=== PATIENT | male | born 1990 | race Hispanic/Latino ===

== ENCOUNTER 2017-06-18 21:25 | Observation (INO) | payer BC ==
[2017-06-18 21:25] VITALS: BMI 25.8
[2017-06-18 23:02] LABS: BARBITURATES, UR NEGATIVE (NEGATIVE); BENZODIAZEPINES, UR NEGATIVE (NEGATIVE); OPIATES, UR NEGATIVE (NEGATIVE); PHENCYCLIDINE, UR POSITIVE (NEGATIVE)
[2017-06-19 01:57] VITALS: TEMP 98.9
--- NOTE | 2017-06-19 02:50 | ED PDOC ---
HPI: Psych/Substance Abuse Time Seen by Provider: 06/18/17 21:31 Chief Complaint (Nursing): Substance Abuse Chief Complaint (Provider): Denies complaint - Pt brought by EMS History Per: Patient, EMS History/Exam Limitations: no limitations Onset/Duration Of Symptoms: Unknown Current Symptoms Are (Timing): Still Present Modifying Factor(s): Alcohol Additional Complaint(s): Pt states he drank today. Pt states he does not do any drunks. Pt with unsteady gait on arrival and making treats to harm staff. Past Medical History Reviewed: Historical Data, Nursing Documentation, Vital Signs Vital Signs: Last Vital Signs Temp 98.9 F 06/19/17 01:56 Pulse 95 H 06/19/17 01:56 Resp 15 06/19/17 01:56 BP 128/83 06/19/17 01:56 Pulse Ox 95 06/19/17 01:56 - Medical History PMH: No Chronic Diseases - Surgical History Surgical History: No Surg Hx - Family History Family History: States: Unknown Family Hx - Living Arrangements Living Arrangements: Other - Social History Current smoker - smoking cessation education provided: No Alcohol: Occasional Drugs: Denies - Immunization History Hx Tetanus Toxoid Vaccination: No Hx Influenza Vaccination: Yes (2015) Hx Pneumococcal Vaccination: No - Home Medications Home Medications: Ambulatory Orders Medication Instructions Recorded No Known Home Med 05/24/17 - Allergies Allergies/Adverse Reactions: Allergies Allergy/AdvReac Type Severity Reaction Status Date / Time No Known Allergies Allergy Verified 05/24/17 17:03 Review of Systems ROS Statement: Except As Marked, All Systems Reviewed And Found Negative Psych: Positive for: Other Physical Exam - Reviewed Nursing Documentation Reviewed: Yes Vital Signs Reviewed: Yes - Physical Exam Appears: Positive for: Well, Non-toxic, No Acute Distress Head Exam: Positive for: ATRAUMATIC, NORMAL INSPECTION, NORMOCEPHALIC Skin: Positive for: Normal Color, Warm, DRY Eye Exam: Positive for: Normal appearance ENT: Positive for: Normal ENT Inspection Neck: Positive for: Normal, Painless ROM Cardiovascular/Chest: Positive for: Regular Rate, Rhythm Respiratory: Positive for: CNT, Normal Breath Sounds Gastrointestinal/Abdominal: Positive for: Normal Exam, Bowel Sounds, Soft. Negative for: Tenderness Back: Positive for: Normal Inspection Extremity: Positive for: Normal ROM Neurologic/Psych: Positive for: Alert, Oriented, Gait (Unsteady) - ECG O2 Sat by Pulse Oximetry: 95 Medical Decision Making Medical Decision Making: Pt initially took off shoes in room. Drug screen and alcohol pending. Pt than becomes aggitated and psychotic. PT given Ativan and Haldol. ED OBSERVATION Date of observation admission: 06/18/17 Time of observation admission: 23:50 - Observation admission statement Patient is being placed in observation because:: Alcohol and PCP intoxication. - Goals of Observation Goals of observation are:: Sobriety. - Progress Note Progress Note: 06/19/17 03:31 Pt sleeping in NAD. Vitals stable. Disposition - Clinical Impression Clinical Impression: PCP intoxication, Alcohol intoxication - Disposition Disposition: Routine/Home Disposition Time: 04:10 Condition: GOOD
[2017-06-19 06:49] VITALS: BP 130/78; PULSE 83; RESP 20; O2SAT 98
== END 2017-06-19 07:14 | disposition home or self-care (01) ==
LOC: H.ER 21:25 → H.EROBSV 23:52
PROVIDERS: ADMIT Emergency Medicine; ATTEND Emergency Medicine
DX: F10.129 Alcohol abuse with intoxication, unspecified (principal); F16.129 Hallucinogen abuse with intoxication, unspecified; Y90.7 Blood alcohol level of 200-239 mg/100 ml
CPT/HCPCS: 82948; 96372; 99284; G0378; G0480; J1630; J2060

== ENCOUNTER 2017-07-18 17:03 | Observation (INO) | payer BC ==
[2017-07-18 17:10] VITALS: BP 130/76; PULSE 124; RESP 14; TEMP 100.1; O2SAT 99
[2017-07-18] MEDS ORDERED: Sodium Chloride 0.9% 1,000 ML IV STA (17:27)
--- NOTE | 2017-07-18 18:07 | ED PDOC ---
HPI: Psych/Substance Abuse Time Seen by Provider: 07/18/17 17:11 Chief Complaint (Nursing): Substance Abuse Chief Complaint (Provider): Altered Mental Status ED Caveat: Altered Mental Status History Per: Patient History/Exam Limitations: clinical condition Onset/Duration Of Symptoms: Days (x 1) Current Symptoms Are (Timing): Still Present Additional Complaint(s): Patient is a 24 y/o male who was brought to the ED by EMS for evaluation of altered mental status. Unable to give any history. Found on the ground outside, across the street from [facility]. Awake but not responding to any questions, appeared confused. Possible intoxication. PMD: Unknown Past Medical History Reviewed: Historical Data, Nursing Documentation, Vital Signs, Unable To Obtain Vital Signs: Last Vital Signs Temp 100.1 F H 07/18/17 17:05 Pulse 124 H 07/18/17 17:05 Resp 14 07/18/17 17:05 BP 130/76 07/18/17 17:05 Pulse Ox 99 07/18/17 17:05 - Medical History Other PMH: unknown - Surgical History Other surgeries: unknown - Family History Family History: States: Unknown Family Hx - Allergies Allergies/Adverse Reactions: Allergies Allergy/AdvReac Type Severity Reaction Status Date / Time Unobtainable Allergy Verified 07/18/17 17:05 Review of Systems Review Of Systems: ROS cannot be obtained secondary to pt's inabilty to answer questions. Physical Exam - Reviewed Nursing Documentation Reviewed: Yes Vital Signs Reviewed: Yes - Physical Exam Appears: Positive for: No Acute Distress (obtunded, WDWN) Head Exam: Positive for: ATRAUMATIC, NORMOCEPHALIC Skin: Positive for: Warm, Dry Eye Exam: Positive for: EOMI, PERRL, Nystagmus (rotatory), Conjunctival injection ENT: Negative for: Pharyngeal Erythema, Tonsillar Exudate Neck: Positive for: Painless ROM, Supple. Negative for: Pain On Movement Of Neck Cardiovascular/Chest: Positive for: Regular Rate, Rhythm, Chest Non Tender. Negative for: Murmur Respiratory: Positive for: Normal Breath Sounds. Negative for: Wheezing Gastrointestinal/Abdominal: Positive for: Soft. Negative for: Tenderness Back: Positive for: Normal Inspection. Negative for: Vertebral Tenderness Extremity: Positive for: Normal ROM. Negative for: Deformity Lymphatic: Negative for: Adenopathy Neurologic/Psych: Positive for: Alert, Mood/Affect (flat), Other (murmurs unintelligibly to questions occasionally but otherwise mute). Negative for: Oriented, Motor/Sensory Deficits - Laboratory Results Result Diagrams: 07/18/17 17:52 07/18/17 17:52 - ECG O2 Sat by Pulse Oximetry: 99 (RA) Pulse Ox Interpretation: Normal Medical Decision Making Medical Decision Making: Initial Impression: Drug intoxication, Altered mental status Differentials include but are not limited to dehydration and alcohol intoxication Time: : Initial Plan: --Labs and EKG ordered --Started on IV fluids, Dextrose 5% --Patient admitted to ED-OBS for altered mental status See ED-OBS tab for further documentation Scribe Attestation: Documented by Kera Ferrell, acting as a scribe for Lima Edmond MD Provider Scribe Attestation: All medical record entries made by the Scribe were at my direction and personally dictated by me. I have reviewed the chart and agree that the record accurately reflects my personal performance of the history, physical exam, medical decision making, and the department course for this patient. I have also personally directed, reviewed, and agree with the discharge instructions and disposition. ED OBSERVATION Date of observation admission: 07/18/17 Time of observation admission: 17:27 - Observation admission statement Patient is being placed in observation because:: Altered mental status - Goals of Observation Goals of observation are:: Clinical sobriety/resolution of symptoms - Progress Note Progress Note: 07/18/17 Time: :27 --Patient resting. Vital signs stable. 07/18/17 18:25 Suddenly more alert, able to give name, walking (and dancing) without difficulty. No signs of withdrawal. Stable for dc. Substance abuse resources given. Disposition - Clinical Impression Clinical Impression: Substance abuse - Disposition Disposition: Routine/Home Disposition Time: 17:30 Condition: IMPROVED
[2017-07-18 18:09] LABS: BASO # 0.1 K/uL (0.0-0.2); BASO % 0.7 % (0.0-2.0); EOS # 0.4 K/uL (0.0-0.7); EOS % 3.3 % (0.0-4.0); HEMATOCRIT 42.9 % (35.0-51.0); LYMPH # 2.8 K/uL (1.0-4.3); LYMPH % 24.8 % (20.0-40.0); MEAN CELL VOLUME 97.8 fl (80.0-94.0); MEAN CORPUSCULAR HEMOGLOBIN 32.3 pg (27.0-31.0); MONO # 0.9 K/uL (0.0-0.8); MONO % 8.2 % (0.0-10.0); RED CELL DISTRIBUTION WIDTH 13.8 % (11.5-14.5); WHITE BLOOD COUNT 11.2 K/uL (4.8-10.8)
[2017-07-18 18:20] LABS: ALB/GLOB RATIO 1.6 (1.0-2.1); ALCOHOL SERUM 170 mg/dl (0-10); ALKALINE PHOSPHATASE 44 U/L (38-126); ALT/SGPT 40 U/L (21-72); AST/SGOT 35 U/L (17-59); BILIRUBIN,TOTAL 0.4 mg/dl (0.2-1.3); BLOOD UREA NITROGEN 13 mg/dl (9-20); CALCIUM 9.6 mg/dL (8.4-10.2); CARBON DIOXIDE 24 mmol/L (22-30); CHLORIDE 108 mmol/L (98-107); GFR AFRICAN-AMERICAN > 60; GLUCOSE,RANDOM 88 mg/dL (75-110); MAGNESIUM 1.9 MG/DL (1.6-2.3); PHOSPHOROUS 3.3 mg/dl (2.5-4.5); SODIUM 145 mmol/l (132-148); TOTAL PROTEIN 7.4 G/DL (6.3-8.2)
== END 2017-07-18 18:43 | disposition home or self-care (01) ==
LOC: H.ER 17:03 → H.EROBSV 17:30 → MERGE 17:30 → EDBD 17:30
PROVIDERS: ADMIT Emergency Medicine; ATTEND Emergency Medicine
DX: F55.8 Abuse of other non-psychoactive substances (principal); F19.10 Other psychoactive substance abuse, uncomplicated
CPT/HCPCS: 36415; 80053; 82948; 83735; 84100; 85025; 96360; 99284; G0378; G0480; J7040

== ENCOUNTER 2017-07-24 15:18 | Observation (INO) | payer BC ==
[2017-07-24 15:19] VITALS: BMI 25.8
[2017-07-24 15:23] VITALS: BP 155/76; PULSE 100; RESP 18; TEMP 97.7; O2SAT 98
--- NOTE | 2017-07-24 16:01 | ED PDOC ---
HPI: Psych/Substance Abuse Time Seen by Provider: 07/24/17 15:46 Chief Complaint (Nursing): Substance Abuse Chief Complaint (Provider): Substance Abuse History Per: EMS History/Exam Limitations: other (Patient has taken unknown drugs) Current Symptoms Are (Timing): Still Present Additional Complaint(s): Rustam Ponce Jr is a 27 year old male that is known to the ED that was brought by EMS for bizarre behavior. Patient is very unstable on his feet, has slurred speech, significant nystagmus, and is mildly aggressive. Past Medical History Reviewed: Historical Data, Nursing Documentation, Vital Signs Vital Signs: Last Vital Signs Temp 97.7 F 07/24/17 15:21 Pulse 100 H 07/24/17 15:21 Resp 18 07/24/17 15:21 BP 155/76 H 07/24/17 15:21 Pulse Ox 98 07/24/17 15:21 - Family History Family History: States: Unknown Family Hx - Immunization History Hx Tetanus Toxoid Vaccination: No Hx Influenza Vaccination: Yes (2015) Hx Pneumococcal Vaccination: No - Home Medications Home Medications: Ambulatory Orders Medication Instructions Recorded No Known Home Med 05/24/17 Unobtainable 05/31/17 - Allergies Allergies/Adverse Reactions: Allergies Allergy/AdvReac Type Severity Reaction Status Date / Time No Known Allergies Allergy Verified 05/24/17 17:03 Review of Systems Review Of Systems: ROS cannot be obtained secondary to pt's inabilty to answer questions. Physical Exam - Reviewed Nursing Documentation Reviewed: Yes Vital Signs Reviewed: Yes - Physical Exam Appears: Positive for: Non-toxic. Negative for: No Acute Distress (Patient is in mild anxious distress.) Head Exam: Positive for: ATRAUMATIC, NORMOCEPHALIC Skin: Positive for: Normal Color, Warm Eye Exam: Positive for: Nystagmus Neurologic/Psych: Positive for: Alert, Oriented, Gait (unsteady), Other ( Patient is acting agressively in ED. Speech is slurred. ). Negative for: Motor/ Sensory Deficits - ECG O2 Sat by Pulse Oximetry: 98 (RA) Pulse Ox Interpretation: Normal Medical Decision Making Medical Decision Making: Impression: Substance Abuse Plan: * For patient's safety and to help with drug-induced psychosis, patient will be placed on four-point restraints and given Ativan. Restraints will be removed when patient is calm. 16:01 Patient will be placed in ED Obs until reaching clinical sobriety. Scribe Attestation: Documented by Parul Fine, acting as a scribe for Bekah Lopez PA-C. Provider Scribe Attestation: All medical record entries made by the Scribe were at my direction and personally dictated by me. I have reviewed the chart and agree that the record accurately reflects my personal performance of the history, physical exam, medical decision making, and the department course for this patient. I have also personally directed, reviewed, and agree with the discharge instructions and disposition. ED OBSERVATION Date of observation admission: 07/24/17 Time of observation admission: 16:01 - Observation admission statement Patient is being placed in observation because:: drug-induced psychosis. - Goals of Observation Goals of observation are:: clinical sobriety. - Progress Note Progress Note: 07/24/17 16:01 Patient is continuously yelling in ED. 07/24/17 16:48 stable no longer with nystagmus, stable gait normal speech. calm and cooperative. Pt is stable and well appearing clincally sober to be d/c home. 4- point restraints removed. Disposition - Clinical Impression Clinical Impression: Drug abuse - Patient ED Disposition Is Patient to be Admitted: No Counseled Patient/Family Regarding: Need For Followup - Disposition Disposition: Routine/Home Disposition Time: 16:50 Condition: STABLE
== END 2017-07-24 17:07 | disposition home or self-care (01) ==
LOC: H.ER 15:18 → H.EROBSV 16:01
PROVIDERS: ADMIT Emergency Medicine; ATTEND Emergency Medicine
DX: F16.10 Hallucinogen abuse, uncomplicated (principal); F10.129 Alcohol abuse with intoxication, unspecified; Y90.6 Blood alcohol level of 120-199 mg/100 ml; H55.00 Unspecified nystagmus; Z78.1 Physical restraint status
CPT/HCPCS: 82948; 96372; 99283; G0378; J2060

== ENCOUNTER 2017-07-25 12:33 | Observation (INO) | payer BC ==
[2017-07-25 12:34] VITALS: BMI 25.8
[2017-07-25 12:40] VITALS: TEMP 97; O2SAT 100
--- NOTE | 2017-07-25 13:06 | ED PDOC ---
HPI: Psych/Substance Abuse Time Seen by Provider: 07/25/17 12:42 Chief Complaint (Nursing): Substance Abuse Chief Complaint (Provider): Substance Abuse History Per: Patient Additional Complaint(s): 27 y/o male presents to the emergency department via ambulance for substance abuse after mother called police for possible phencyclidine (PCP) use. Patient has a history of known substance abuse and was seen in this facility multiple times for similar problems. Patient is a poor historian due to intoxication. As per history from EMS, patient is not experiencing homicidal or suicidal ideation. Past Medical History Reviewed: Historical Data, Nursing Documentation, Vital Signs Vital Signs: Last Vital Signs Temp 97 F L 07/25/17 12:36 Pulse 100 H 07/25/17 12:36 Resp 20 07/25/17 12:36 BP 143/91 H 07/25/17 12:36 Pulse Ox 100 07/25/17 12:36 - Medical History PMH: No Chronic Diseases - Surgical History Surgical History: No Surg Hx - Family History Family History: States: Unknown Family Hx - Immunization History Hx Tetanus Toxoid Vaccination: No Hx Influenza Vaccination: Yes (2015) Hx Pneumococcal Vaccination: No - Home Medications Home Medications: Ambulatory Orders Medication Instructions Recorded No Known Home Med 05/24/17 Unobtainable 05/31/17 - Allergies Allergies/Adverse Reactions: Allergies Allergy/AdvReac Type Severity Reaction Status Date / Time No Known Allergies Allergy Verified 05/24/17 17:03 Review of Systems ROS Statement: Except As Marked, All Systems Reviewed And Found Negative (Poor historian due to substance abuse) Psych: Negative for: Suicidal ideation (Homicidal ideation as per EMS) Physical Exam - Reviewed Nursing Documentation Reviewed: Yes Vital Signs Reviewed: Yes - Physical Exam Appears: Positive for: Non-toxic, No Acute Distress Head Exam: Positive for: ATRAUMATIC, NORMAL INSPECTION, NORMOCEPHALIC Skin: Positive for: Normal Color, Warm, Dry Eye Exam: Positive for: Normal appearance, EOMI Cardiovascular/Chest: Positive for: Regular Rate, Rhythm. Negative for: Murmur Respiratory: Positive for: Normal Breath Sounds. Negative for: Accessory Muscle Use, Respiratory Distress Gastrointestinal/Abdominal: Positive for: Normal Exam, Soft. Negative for: Tenderness Extremity: Positive for: Normal ROM. Negative for: Pedal Edema Neurologic/Psych: Positive for: Alert, Oriented, Mood/Affect (Agitated and intoxicated) - ECG O2 Sat by Pulse Oximetry: 100 (RA) Pulse Ox Interpretation: Normal Medical Decision Making Medical Decision Making: Time: 12:43 Initial impression: Substance abuse most likely PCP Initial plan: --Ativan 2 mg IM --Restraint: Violent or harm to self/other --Reevaluation Time: 13:43 --Admit to hospital routine: Placed on ED Obs for substance abuse Any further documentation will be included within ED Obs section of chart. Pt is alert and awake. Ambulating with steady gait Scribe Attestation: Documented by Kya Singh, acting as a scribe for Edgar Muller MD. Provider Scribe Attestation: All medical record entries made by the Scribe were at my direction and personally dictated by me. I have reviewed the chart and agree that the record accurately reflects my personal performance of the history, physical exam, medical decision making, and the department course for this patient. I have also personally directed, reviewed, and agree with the discharge instructions and disposition. ED OBSERVATION Discharge: Yes Date of observation admission: 07/25/17 Time of observation admission: 12:43 - Observation admission statement Patient is being placed in observation because:: Substance abuse - Goals of Observation Goals of observation are:: Clinical sobriety Disposition - Clinical Impression Clinical Impression: PCP intoxication - Patient ED Disposition Is Patient to be Admitted: Transfer of Care Counseled Patient/Family Regarding: Studies Performed, Diagnosis - Disposition Disposition: Transfer of Care Disposition Time: 15:00 Condition: GOOD
[2017-07-25 15:03] VITALS: BP 136/88; PULSE 90; RESP 18
== END 2017-07-25 15:07 | disposition home or self-care (01) ==
LOC: H.ER 12:33 → H.EROBSV 13:43
PROVIDERS: ADMIT Emergency Medicine; ATTEND Emergency Medicine
DX: F16.129 Hallucinogen abuse with intoxication, unspecified (principal)
CPT/HCPCS: 96372; 99284; G0378; J2060

== ENCOUNTER 2017-07-26 16:31 | Emergency (ER) | payer BC ==
[2017-07-26 16:31] VITALS: BMI 25.8
[2017-07-26 16:36] VITALS: BP 143/91; PULSE 128; RESP 16; TEMP 99; O2SAT 98
--- NOTE | 2017-07-26 16:52 | ED PDOC ---
HPI: Psych/Substance Abuse Time Seen by Provider: 07/26/17 16:34 Chief Complaint (Nursing): Substance Abuse Chief Complaint (Provider): Substance abuse History Per: Patient Additional Complaint(s): Pt is a 27 yo male, Hx of PCP and Alcohol Abuse, BIB EMS for evaluation of possible substance abuse. Pt found sitting on bench near lightrail, pt drowsy, easily arousable, alert and oriented x 3. Admits to "drinking a lot of beer." Calm and cooperative at present time. Pt oriented to Person, place and time, offers no physical complaints. Past Medical History Reviewed: Nursing Documentation, Vital Signs Vital Signs: Last Vital Signs Temp 99.0 F 07/26/17 16:32 Pulse 128 H 07/26/17 16:32 Resp 16 07/26/17 16:32 BP 143/91 H 07/26/17 16:32 Pulse Ox 98 07/26/17 16:32 - Medical History PMH: No Chronic Diseases - Family History Family History: States: Unknown Family Hx - Social History Alcohol: > 2 Drinks/Day Drugs: Other - Immunization History Hx Tetanus Toxoid Vaccination: No Hx Influenza Vaccination: Yes (2015) Hx Pneumococcal Vaccination: No - Home Medications Home Medications: Ambulatory Orders Medication Instructions Recorded No Known Home Med 05/24/17 Unobtainable 05/31/17 - Allergies Allergies/Adverse Reactions: Allergies Allergy/AdvReac Type Severity Reaction Status Date / Time No Known Allergies Allergy Verified 05/24/17 17:03 Review of Systems ROS Statement: Except As Marked, All Systems Reviewed And Found Negative Physical Exam - Reviewed Nursing Documentation Reviewed: Yes Vital Signs Reviewed: Yes - Physical Exam Appears: Positive for: Well, Non-toxic, No Acute Distress Head Exam: Positive for: ATRAUMATIC, NORMAL INSPECTION, NORMOCEPHALIC Skin: Positive for: Normal Color, Warm, DRY Eye Exam: Positive for: EOMI, Normal appearance, PERRL ENT: Positive for: Normal ENT Inspection Neck: Positive for: Normal, Painless ROM Cardiovascular/Chest: Positive for: Regular Rate, Rhythm Respiratory: Positive for: CNT, Normal Breath Sounds Gastrointestinal/Abdominal: Positive for: Normal Exam, Bowel Sounds, Soft Back: Positive for: Normal Inspection Extremity: Positive for: Normal ROM Neurologic/Psych: Positive for: Alert, Oriented - ECG O2 Sat by Pulse Oximetry: 98 Medical Decision Making Medical Decision Making: Pt able to ambulate with steady gait. Admits to drinking today. Answers questions appropriately. Notes last using PCP yesterday. Disposition - Clinical Impression Clinical Impression: Alcohol intoxication, Substance abuse - Patient ED Disposition Is Patient to be Admitted: No - Disposition Disposition: Routine/Home Disposition Time: 16:54 Condition: STABLE Instructions: Alcohol Intoxication (ED), Polysubstance Abuse (ED) Forms: [facility] (Eth[place]ian) - POA Present On Arrival: None
== END 2017-07-26 17:05 | disposition home or self-care (01) ==
LOC: H.ER 16:31
DX: F10.10 Alcohol abuse, uncomplicated (principal); F19.10 Other psychoactive substance abuse, uncomplicated

== ENCOUNTER 2017-07-30 22:29 | Observation (INO) | payer BC ==
[2017-07-30 22:29] VITALS: BMI 25.8
[2017-07-30 22:33] VITALS: TEMP 99.2
--- NOTE | 2017-07-30 23:38 | ED PDOC ---
HPI: Psych/Substance Abuse Time Seen by Provider: 07/30/17 22:36 Chief Complaint (Nursing): Altered Mental Status Chief Complaint (Provider): ETOH intoxication ED Caveat: Intoxicated History Per: EMS History/Exam Limitations: intoxication Onset/Duration Of Symptoms: Mins (prior to arrival) Current Symptoms Are (Timing): Still Present Additional Complaint(s): Rustam Ponce Jr. is a 27 year old male, known to ED for substance abuse, who presents to the emergency department via EMS, for an evaluation of alcohol intoxication prior to arrival. Unable to provide further medical history due to current state of intoxication. PMD: none provided Past Medical History Reviewed: Historical Data, Nursing Documentation, Vital Signs Vital Signs: Last Vital Signs Temp 99.2 F 07/30/17 22:30 Pulse 115 H 07/30/17 22:30 Resp 20 07/30/17 22:30 BP 136/76 07/30/17 22:30 Pulse Ox 99 07/30/17 22:30 - Family History Family History: States: Unknown Family Hx - Social History Alcohol: > 2 Drinks/Day - Immunization History Hx Tetanus Toxoid Vaccination: No Hx Influenza Vaccination: Yes (2015) Hx Pneumococcal Vaccination: No - Home Medications Home Medications: Ambulatory Orders Medication Instructions Recorded No Known Home Med 05/24/17 Unobtainable 05/31/17 - Allergies Allergies/Adverse Reactions: Allergies Allergy/AdvReac Type Severity Reaction Status Date / Time No Known Allergies Allergy Verified 05/24/17 17:03 Review of Systems Review Of Systems: ROS cannot be obtained secondary to pt's inabilty to answer questions. (intoxication) Physical Exam - Reviewed Nursing Documentation Reviewed: Yes Vital Signs Reviewed: Yes - Physical Exam Appears: Positive for: Well, Non-toxic, No Acute Distress (but agitated) Head Exam: Positive for: ATRAUMATIC, NORMAL INSPECTION, NORMOCEPHALIC Skin: Positive for: Normal Color Cardiovascular/Chest: Positive for: Regular Rate, Rhythm. Negative for: Chest Non Tender Respiratory: Positive for: Normal Breath Sounds. Negative for: Crackles, Rales , Rhonchi, Wheezing, Respiratory Distress Gastrointestinal/Abdominal: Positive for: Normal Exam, Bowel Sounds, Soft. Negative for: Tenderness Neurologic/Psych: Positive for: Alert, Mood/Affect (agitated), Other - ECG O2 Sat by Pulse Oximetry: 99 (RA) Pulse Ox Interpretation: Normal Medical Decision Making Medical Decision Making: Initial Impression: ETOH intoxication Initial Plan: * Alcohol serum * Drug screen, urine * Haldol 5mg IM * Ativan 2mg IM * Accucheck * Restraint * Admit to hospital Scribe Attestation: Documented by Fartun Yang, acting as a scribe for Martine Toledo MD. Provider Scribe Attestation: All medical record entries made by theArturowere at my direction and personally dictated by me. I have reviewed the chart and agree that the record accurately reflects my personal performance of the history, physical exam, medical decision making, and the department course for this patient. I have also personally directed, reviewed, and agree with the discharge instructions and disposition. ED OBSERVATION Date of observation admission: 07/30/17 Time of observation admission: 22:43 - Observation admission statement Patient is being placed in observation because:: ETOH intoxication - Goals of Observation Goals of observation are:: clinical sobriety Disposition - Clinical Impression Clinical Impression: PCP intoxication, Drug abuse - Disposition Disposition: Transfer of Care Disposition Time: 00:00 Condition: STABLE Patient Signed Over To: Glenroy Richards Handoff Comments: Pending sobriety.
--- NOTE | 2017-07-31 00:20 | ED PDOC ---
- ECG O2 Sat by Pulse Oximetry: 99 (RA) Pulse Ox Interpretation: Normal Medical Decision Making Medical Decision Making: Time: 00:00 --Patient was endorsed to provider by Dr. Martine Toledo. Pending clinical sobriety. --Patient is resting comfortably with stable vital signs. Time: 0130 --Patient continues to rest comfortably. Time: 0300 --Patient continues to rest comfortably. Time: 0430 --Patient continues to rest comfortably. Time: 0500 --Upon provider reevaluation, patient is awake, alert, medically stable and requires no further treatment in the ED at this time. Patient will be discharged home. Counseling was provided and all questions were answered regarding diagnosis and need for follow up with PCP. There is agreement to discharge plan. Return if symptoms persist or worsen. Clinical Impression: PCP intoxication; Drug abuse Scribe Attestation: Documented by Fartun Yang, acting as a scribe for Glenroy Richards MD. Provider Scribe Attestation: All medical record entries made by the Scribe were at my direction and personally dictated by me. I have reviewed the chart and agree that the record accurately reflects my personal performance of the history, physical exam, medical decision making, and the department course for this patient. I have also personally directed, reviewed, and agree with the discharge instructions and disposition. Disposition Counseled Patient/Family Regarding: Diagnosis - Clinical Impression Clinical Impression: PCP intoxication, Drug abuse - POA Present On Arrival: None - Disposition Disposition: Routine/Home Disposition Time: 05:00 Condition: STABLE
[2017-07-31 03:21] VITALS: RESP 18
[2017-07-31 05:04] VITALS: BP 102/72; PULSE 93
[2017-07-31 05:05] VITALS: O2SAT 99
== END 2017-07-31 05:18 | disposition home or self-care (01) ==
LOC: H.ER 22:29 → H.EROBSV 22:43
PROVIDERS: ADMIT Emergency Medicine; ATTEND Emergency Medicine
DX: F10.129 Alcohol abuse with intoxication, unspecified (principal); F16.129 Hallucinogen abuse with intoxication, unspecified; Y90.6 Blood alcohol level of 120-199 mg/100 ml
CPT/HCPCS: 82948; 96372; 99285; G0378; G0480; J1630; J2060

== ENCOUNTER 2017-08-06 22:29 | Observation (INO) | payer BC ==
[2017-08-06 22:29] VITALS: BMI 25.8
[2017-08-06 22:32] VITALS: BP 141/82; PULSE 125; RESP 16; TEMP 97.9; O2SAT 97
--- NOTE | 2017-08-06 23:25 | ED PDOC ---
HPI: Psych/Substance Abuse Time Seen by Provider: 08/06/17 22:33 Chief Complaint (Nursing): Substance Abuse Chief Complaint (Provider): intoxication ED Caveat: Intoxicated Additional Complaint(s): BIBEMS for intoxication Known to ER for multiple visits for PCP and alcohol intoxication Pt aggressive and not communicating any history Past Medical History Reviewed: Historical Data, Nursing Documentation, Vital Signs, Unable To Obtain Vital Signs: Last Vital Signs Temp 97.9 F 08/06/17 22:30 Pulse 125 H 08/06/17 22:30 Resp 16 08/06/17 22:30 BP 141/82 08/06/17 22:30 Pulse Ox 97 08/06/17 22:30 - Family History Family History: States: Unknown Family Hx - Immunization History Hx Tetanus Toxoid Vaccination: No Hx Influenza Vaccination: Yes (2015) Hx Pneumococcal Vaccination: No - Home Medications Home Medications: Ambulatory Orders Medication Instructions Recorded No Known Home Med 05/24/17 Unobtainable 05/31/17 - Allergies Allergies/Adverse Reactions: Allergies Allergy/AdvReac Type Severity Reaction Status Date / Time No Known Allergies Allergy Verified 05/24/17 17:03 Review of Systems Review Of Systems: ROS cannot be obtained secondary to pt's inabilty to answer questions. Physical Exam - Reviewed Nursing Documentation Reviewed: Yes Vital Signs Reviewed: Yes - Physical Exam Appears: Positive for: In Acute Distress (aggressive and shouting, appears intoxicated) Head Exam: Positive for: ATRAUMATIC, NORMOCEPHALIC Skin: Positive for: Warm, Dry Eye Exam: Positive for: EOMI, PERRL, Nystagmus (rotatory) ENT: Negative for: Pharyngeal Erythema, Tonsillar Exudate Neck: Positive for: Painless ROM, Supple Cardiovascular/Chest: Positive for: Chest Non Tender, Tachycardia Respiratory: Positive for: Normal Breath Sounds. Negative for: Accessory Muscle Use, Respiratory Distress Gastrointestinal/Abdominal: Positive for: Soft. Negative for: Tenderness Back: Positive for: Normal Inspection. Negative for: Muscle Spasm Extremity: Positive for: Normal ROM. Negative for: Deformity Lymphatic: Negative for: Adenopathy Neurologic/Psych: Positive for: Alert, Gait (unsteady). Negative for: Oriented , Motor/Sensory Deficits - Laboratory Results Result Diagrams: 08/06/17 23:02 08/06/17 23:10 - ECG O2 Sat by Pulse Oximetry: 97 - Progress ED Course And Treament: Required medication for psychosis and restraints for safety. Disposition - Clinical Impression Clinical Impression: PCP intoxication - Disposition Disposition: Transfer of Care Disposition Time: 23:00 Condition: STABLE Patient Signed Over To: Flynn Baltazar Handoff Comments: Pending sobriety.
[2017-08-06 23:30] LABS: ALB/GLOB RATIO 1.6 (1.0-2.1); ALCOHOL SERUM < 10 mg/dl (0-10); ALKALINE PHOSPHATASE 44 U/L (38-126); ALT/SGPT 53 U/L (21-72); AST/SGOT 62 U/L (17-59); BILIRUBIN,TOTAL 0.3 mg/dl (0.2-1.3); BLOOD UREA NITROGEN 20 mg/dl (9-20); CALCIUM 10.1 mg/dL (8.4-10.2); CARBON DIOXIDE 21 mmol/L (22-30); CHLORIDE 109 mmol/L (98-107); GFR AFRICAN-AMERICAN > 60; GLUCOSE,RANDOM 110 mg/dL (75-110); POTASSIUM 4.2 MMOL/L (3.6-5.0); SODIUM 144 mmol/l (132-148); TOTAL PROTEIN 7.5 G/DL (6.3-8.2)
[2017-08-06 23:32] LABS: BASO # 0.1 K/uL (0.0-0.2); BASO % 0.7 % (0.0-2.0); EOS # 0.2 K/uL (0.0-0.7); EOS % 1.7 % (0.0-4.0); HEMATOCRIT 42.2 % (35.0-51.0); LYMPH # 2.2 K/uL (1.0-4.3); LYMPH % 20.8 % (20.0-40.0); MEAN CELL VOLUME 97.7 fl (80.0-94.0); MEAN CORPUSCULAR HEMOGLOBIN 32.5 pg (27.0-31.0); MEAN CORPUSCULAR HGB CONC 33.3 g/dL (33.0-37.0); MEAN PLATELET VOLUME 7.9 fl (7.2-11.7); MONO # 0.9 K/uL (0.0-0.8); MONO % 8.9 % (0.0-10.0); NEUT # 7.2 K/uL (1.8-7.0); NEUT % 67.9 % (50.0-75.0); NRBC % 0.1 % (0.0-0.0); RED CELL DISTRIBUTION WIDTH 13.9 % (11.5-14.5); WHITE BLOOD COUNT 10.7 K/uL (4.8-10.8)
--- NOTE | 2017-08-07 00:45 | ED PDOC ---
- Laboratory Results Result Diagrams: 08/06/17 23:02 08/06/17 23:10 - ECG O2 Sat by Pulse Oximetry: 97 (RA) Pulse Ox Interpretation: Normal Medical Decision Making Medical Decision Making: Time: 0:00 --Patient is transferred to hi by Dr. Lima Edmond. --Patient is awaiting clinical sobriety. *See ED-OBS tab for further documentation Scribe Attestation: Documented by Syed Jc, acting as a scribe for Flynn Baltazar MD Provider Scribe Attestation: All medical record entries made by the Scribe were at my direction and personally dictated by me. I have reviewed the chart and agree that the record accurately reflects my personal performance of the history, physical exam, medical decision making, and the department course for this patient. I have also personally directed, reviewed, and agree with the discharge instructions and disposition. Disposition Counseled Patient/Family Regarding: Studies Performed, Diagnosis, Need For Followup - Clinical Impression Clinical Impression: PCP intoxication - POA Present On Arrival: None - Disposition Disposition: Routine/Home Disposition Time: 23:00 Condition: STABLE ED OBSERVATION Date of observation admission: 08/06/17 Time of observation admission: 23:00 - Observation admission statement Patient is being placed in observation because:: drug-induced psychosis - Goals of Observation Goals of observation are:: Clinical sobriety - Progress Note Progress Note: 08/07/17 00:00 --Patient is resting. Vital signs stable. Time: 1:30 --Patient is currently resting with stable vitals. Time: 1:45 --Restraints removed. Time: 03:00 --Patient is resting comfortably with stable vitals. Time: 4:30 Clinical Impression: PCP Intoxication --Patient is awake, alert, and oriented x3 --He has a steady gate, clear speech, and is stable for discharge
== END 2017-08-07 04:23 | disposition home or self-care (01) ==
LOC: H.ER 22:29 → H.EROBSV 23:00
PROVIDERS: ADMIT Emergency Medicine; ATTEND Emergency Medicine
DX: F16.129 Hallucinogen abuse with intoxication, unspecified (principal); F10.129 Alcohol abuse with intoxication, unspecified
CPT/HCPCS: 36415; 80053; 82948; 85025; 96372; 99283; G0378; G0480; J1630; J2060

== ENCOUNTER 2017-10-22 17:58 | Emergency (ER) | payer BC ==
[2017-10-22 17:58] VITALS: BMI 56.9
[2017-10-22 18:02] VITALS: BP 166/86; PULSE 129; RESP 20; TEMP 100.6; O2SAT 100
--- NOTE | 2017-10-22 18:14 | ED PDOC ---
HPI: Psych/Substance Abuse Time Seen by Provider: 10/22/17 18:10 Chief Complaint (Nursing): Substance Abuse Chief Complaint (Provider): susbtance abuse History Per: Patient, EMS Additional Complaint(s): Patient was brought in by police and EMS for evaluation of alcohol and PCP use. Patient admits to drinking but he denies drug use. He offers no acute complaints and he is not currently under arrest. Patient denies suicidal or homicidal ideation. Past Medical History Reviewed: Historical Data, Nursing Documentation, Vital Signs Vital Signs: Last Vital Signs Temp 100.6 F H 10/22/17 18:00 Pulse 129 H 10/22/17 18:00 Resp 20 10/22/17 18:00 BP 166/86 H 10/22/17 18:00 Pulse Ox 100 10/22/17 18:00 - Medical History PMH: No Chronic Diseases - Family History Family History: States: No Known Family Hx - Living Arrangements Living Arrangements: With Family - Social History Current smoker - smoking cessation education provided: Yes Alcohol: Social Drugs: Other (PCP) - Home Medications Home Medications: Ambulatory Orders Medication Instructions Recorded No Known Home Med 10/07/17 Unobtainable 10/07/17 - Allergies Allergies/Adverse Reactions: Allergies Allergy/AdvReac Type Severity Reaction Status Date / Time No Known Allergies Allergy Verified 10/22/17 17:59 Review of Systems ROS Statement: Except As Marked, All Systems Reviewed And Found Negative Cardiovascular: Negative for: Chest Pain Gastrointestinal: Negative for: Nausea, Vomiting Psych: Positive for: Other (etoh, substance abuse) Physical Exam - Reviewed Nursing Documentation Reviewed: Yes Vital Signs Reviewed: Yes - Physical Exam Appears: Positive for: Well, Non-toxic, No Acute Distress Skin: Negative for: Rash Eye Exam: Positive for: Normal appearance Cardiovascular/Chest: Positive for: Regular Rate, Rhythm Respiratory: Positive for: Normal Breath Sounds. Negative for: Wheezing, Respiratory Distress Neurologic/Psych: Positive for: Alert, Other (intoxicated, answers some questions appropriately) - Laboratory Results Result Diagrams: 10/22/17 18:42 10/22/17 18:42 - ECG O2 Sat by Pulse Oximetry: 100 Pulse Ox Interpretation: Normal Medical Decision Making Medical Decision Makin:15: 27 year old here for alcohol and PCP abuse Plan: 1:1 bedside observation CBC CMP UDS BAL BAL: 129 UDS: positive for PCP 19:51: patient is awake, alert, has steady gait, he is stable for discharge. Disposition - Clinical Impression Clinical Impression: PCP (phencyclidine) abuse, Alcohol intoxication - Patient ED Disposition Is Patient to be Admitted: No Counseled Patient/Family Regarding: Studies Performed, Diagnosis, Need For Followup - Disposition Referrals: [facility] [Outside] Disposition: Routine/Home Disposition Time: 19:44 Condition: STABLE Additional Instructions: Follow up with primary care doctor. Instructions: Alcohol Intoxication (ED), Polysubstance Abuse (ED) Forms: [employer] (Belarusian)
[2017-10-22 18:59] LABS: ALB/GLOB RATIO 1.5 (1.0-2.1); ALCOHOL SERUM 129 mg/dl (0-10); ALKALINE PHOSPHATASE 42 U/L (38-126); ALT/SGPT 67 U/L (21-72); AST/SGOT 58 U/L (17-59); BILIRUBIN,TOTAL 0.3 mg/dl (0.2-1.3); BLOOD UREA NITROGEN 24 mg/dl (9-20); CALCIUM 9.6 mg/dL (8.4-10.2); CARBON DIOXIDE 21 mmol/L (22-30); CHLORIDE 110 mmol/L (98-107); GFR AFRICAN-AMERICAN > 60; GLUCOSE,RANDOM 95 mg/dL (75-110); POTASSIUM 4.1 MMOL/L (3.6-5.0); SODIUM 146 mmol/l (132-148); TOTAL PROTEIN 7.6 G/DL (6.3-8.2)
[2017-10-22 19:04] LABS: BASO # 0.1 K/uL (0.0-0.2); BASO % 0.8 % (0.0-2.0); EOS # 0.4 K/uL (0.0-0.7); EOS % 3.7 % (0.0-4.0); HEMATOCRIT 45.2 % (35.0-51.0); LYMPH # 3.2 K/uL (1.0-4.3); LYMPH % 30.8 % (20.0-40.0); MEAN CELL VOLUME 97.7 fl (80.0-94.0); MEAN CORPUSCULAR HEMOGLOBIN 32.1 pg (27.0-31.0); MEAN CORPUSCULAR HGB CONC 32.8 g/dL (33.0-37.0); MEAN PLATELET VOLUME 8.1 fl (7.2-11.7); MONO # 0.9 K/uL (0.0-0.8); MONO % 8.3 % (0.0-10.0); NEUT # 5.8 K/uL (1.8-7.0); NEUT % 56.4 % (50.0-75.0); NRBC % 0.1 % (0.0-0.0); RED CELL DISTRIBUTION WIDTH 13.6 % (11.5-14.5); WHITE BLOOD COUNT 10.2 K/uL (4.8-10.8)
[2017-10-22 19:12] LABS: RBC URINE 1 /hpf (0-3); URINE BILIRUBIN NEGATIVE (NEGATIVE); URINE BLOOD NEGATIVE (NEGATIVE); URINE COLOR STRAW (YELLOW); URINE GLUCOSE (UA) NEG (Normal); URINE KETONE NEGATIVE (NEGATIVE); URINE LEUKOCYTE ESTERASE NEG Leu/uL (Negative); URINE PROTEIN NEGATIVE (NEGATIVE); URINE UROBILINOGEN 0.2-1.0 mg/dL (0.2-1.0); WBC URINE < 1 /hpf (0-5)
== END 2017-10-22 19:59 | disposition home or self-care (01) ==
LOC: H.ER 17:58
DX: F10.129 Alcohol abuse with intoxication, unspecified (principal); F17.200 Nicotine dependence, unspecified, uncomplicated; F16.10 Hallucinogen abuse, uncomplicated
CPT/HCPCS: 80053; 81003; 85025; 99283; G0480

== ENCOUNTER 2017-11-20 13:08 | Emergency (ER) | payer BC ==
[2017-11-20 13:09] VITALS: BMI 56.9
--- NOTE | 2017-11-20 13:53 | ED PDOC ---
HPI: Psych/Substance Abuse Time Seen by Provider: 11/20/17 13:17 Chief Complaint (Nursing): Substance Abuse Chief Complaint (Provider): Substance Abuse History Per: Patient History/Exam Limitations: no limitations Current Symptoms Are (Timing): Still Present Suicide/Self Injury Attempted (Context): None Modifying Factor(s): Other (PCP) Severity: None Additional Complaint(s): 27 year old male brought in by police for possible substance abuse. According to police patient is not under arrest as of now. Patient admits to using PCP. Denies any other medical complaints. As per EMS patient was found in the street and when asked question she was uncooperative and does not want to answer questions and so the police were called. in the ED patient is pacing back and forth in his room and refusing to answer questions. Past Medical History Reviewed: Historical Data, Nursing Documentation, Vital Signs Vital Signs: Last Vital Signs Temp 96.0 F L 11/20/17 13:10 Pulse 102 H 11/20/17 13:10 Resp 16 11/20/17 13:10 BP 162/84 H 11/20/17 13:10 Pulse Ox 100 11/20/17 13:10 - Medical History PMH: No Chronic Diseases - Surgical History Surgical History: No Surg Hx - Family History Family History: States: Unknown Family Hx - Social History Current smoker - smoking cessation education provided: Yes (Heavy Smoker > 10 Cigarettes Daily) Ex-Smoker (has not smoked in the last 12 months): Yes Alcohol: None Drugs: Other (PCP) - Immunization History Hx Tetanus Toxoid Vaccination: No Hx Influenza Vaccination: Yes (2015) Hx Pneumococcal Vaccination: No - Home Medications Home Medications: Ambulatory Orders Medication Instructions Recorded No Known Home Med 10/07/17 Unobtainable 10/07/17 - Allergies Allergies/Adverse Reactions: Allergies Allergy/AdvReac Type Severity Reaction Status Date / Time No Known Allergies Allergy Verified 10/22/17 17:59 Review of Systems Review Of Systems: ROS cannot be obtained secondary to pt's inabilty to answer questions. (unable to be obtained due to patients intoxicated state) Physical Exam - Reviewed Nursing Documentation Reviewed: Yes Vital Signs Reviewed: Yes - Physical Exam Appears: Positive for: Non-toxic, No Acute Distress Head Exam: Positive for: ATRAUMATIC, NORMAL INSPECTION, NORMOCEPHALIC Skin: Positive for: Normal Color, Warm, Dry. Negative for: Rash Eye Exam: Positive for: Normal appearance (pupils are dilated), EOMI, PERRL. Negative for: Nystagmus ENT: Positive for: Normal ENT Inspection. Negative for: Nasal Congestion, Tonsillar Exudate, Tonsillar Swelling Neck: Positive for: Normal, Painless ROM, Supple Cardiovascular/Chest: Positive for: Regular Rate, Rhythm, Chest Non Tender. Negative for: Tachycardia Respiratory: Positive for: Normal Breath Sounds. Negative for: Wheezing, Respiratory Distress Gastrointestinal/Abdominal: Positive for: Normal Exam, Bowel Sounds, Soft. Negative for: Tenderness, Guarding, Rebound Back: Positive for: Normal Inspection. Negative for: L CVA Tenderness, R CVA Tenderness Extremity: Positive for: Normal ROM (Full ROM of all extremities). Negative for : Tenderness, Deformity, Swelling Neurologic/Psych: Positive for: Alert, Oriented, Gait - ECG O2 Sat by Pulse Oximetry: 100 (RA) Pulse Ox Interpretation: Normal - Progress Re-evaluation Time: 18:27 Condition: Re-examined, Improved Medical Decision Making Medical Decision Makin Initial Impression 27 y/o male presenting with PCP polysubstance abuse Initial Impression * Ativan 2mg IM * Restraint: violent or ham to self/other * Reevaluation 1345 Upon arrival patient was restrained due to substance induced psychosis and agitation. Patient was administered Ativan IM for agitation and psychosis. Documented by Yesika Chow acting as a scribe for Edgar Muller MD. All medical record entries made by the Scribe were at my direction and personally dictated by me. I have reviewed the chart and agree that the record accurately reflects my personal performance of the history, physical exam, medical decision making, and the department course for this patient. I have also personally directed, reviewed, and agree with the discharge instructions and disposition. Disposition - Clinical Impression Clinical Impression: PCP intoxication, PCP (phencyclidine) abuse - Patient ED Disposition Is Patient to be Admitted: No Doctor Will See Patient In The: Office Counseled Patient/Family Regarding: Studies Performed, Diagnosis, Need For Followup - Disposition Referrals: [facility] [Outside] Disposition: Routine/Home Disposition Time: 18:27 Condition: GOOD Instructions: Polysubstance Abuse (ED)
[2017-11-20 18:29] VITALS: O2SAT 100
[2017-11-20 18:39] VITALS: BP 110/82; PULSE 98; RESP 19; TEMP 98.6
== END 2017-11-20 18:54 | disposition home or self-care (01) ==
LOC: H.ER 13:08
DX: F16.10 Hallucinogen abuse, uncomplicated (principal); F29 Unspecified psychosis not due to a substance or known physiological condition; F17.210 Nicotine dependence, cigarettes, uncomplicated
CPT/HCPCS: 96372; 99285; J2060

== ENCOUNTER 2017-12-18 21:46 | Emergency (ER) | payer BC ==
[2017-12-18 21:47] VITALS: BMI 56.9
--- NOTE | 2017-12-18 22:18 | ED PDOC ---
HPI: Psych/Substance Abuse Time Seen by Provider: 12/18/17 21:59 Chief Complaint (Nursing): Substance Abuse Chief Complaint (Provider): Substanc Abuse History Per: Patient History/Exam Limitations: no limitations Onset/Duration Of Symptoms: Hrs Current Symptoms Are (Timing): Still Present Suicide/Self Injury Attempted (Context): None Modifying Factor(s): Other (PCP) Involuntary Hold By: None Additional Complaint(s): 27 year old male is brought into the ED by EMS for substance abuse. As per ems the patient was found sleeping on the street. Patient is well known to the ER for multiple visits for PCP abuse. During interview patient admitted that he smoked something but he is aware of his surrounding and he knows his address and would like to go home. Past Medical History Reviewed: Historical Data, Vital Signs Vital Signs: Last Vital Signs Temp 98 F 12/18/17 22:04 Pulse 115 H 12/18/17 22:04 Resp 18 12/18/17 22:04 BP 143/91 H 12/18/17 22:04 Pulse Ox 100 12/18/17 22:04 - Medical History PMH: No Chronic Diseases - Surgical History Surgical History: No Surg Hx - Family History Family History: States: Unknown Family Hx - Social History Drugs: Other (PCP) - Immunization History Hx Tetanus Toxoid Vaccination: No Hx Influenza Vaccination: Yes (2015) Hx Pneumococcal Vaccination: No - Home Medications Home Medications: Ambulatory Orders Medication Instructions Recorded Unobtainable 10/07/17 - Allergies Allergies/Adverse Reactions: Allergies Allergy/AdvReac Type Severity Reaction Status Date / Time No Known Allergies Allergy Verified 12/17/17 16:36 Review of Systems ROS Statement: Except As Marked, All Systems Reviewed And Found Negative Psych: Positive for: Other (substance intoxication) Physical Exam - Reviewed Nursing Documentation Reviewed: Yes Vital Signs Reviewed: Yes - Physical Exam Appears: Positive for: Non-toxic, No Acute Distress (slurred speech) Head Exam: Positive for: ATRAUMATIC, NORMOCEPHALIC Skin: Positive for: Normal Color, Warm, Dry. Negative for: Rash Eye Exam: Positive for: Normal appearance, EOMI Neck: Positive for: Normal, Painless ROM, Supple Cardiovascular/Chest: Positive for: Regular Rate, Rhythm, Tachycardia (mild) Extremity: Positive for: Normal ROM Neurologic/Psych: Positive for: Alert, Oriented, Gait (steady) - ECG O2 Sat by Pulse Oximetry: 100 (RA) Pulse Ox Interpretation: Normal Medical Decision Making Medical Decision Makin Initial Impression 27 y/o male presenting with Substance abuse - PCP Initial Plan: * 1:1 Observation * Revaluation 2209 patient will be monitored as he is not stable for discharge at this moment. Jeremie tis also under observation for elopement. Documented by Yesika Chow acting as a scribe for Edgar Muller MD. All medical record entries made by the Scribe were at my direction and personally dictated by me. I have reviewed the chart and agree that the record accurately reflects my personal performance of the history, physical exam, medical decision making, and the department course for this patient. I have also personally directed, reviewed, and agree with the discharge instructions and disposition. Disposition - Clinical Impression Clinical Impression: PCP intoxication - Patient ED Disposition Is Patient to be Admitted: No Doctor Will See Patient In The: Office Counseled Patient/Family Regarding: Studies Performed, Diagnosis, Need For Followup - Disposition Referrals: [facility] [Outside] Disposition: Routine/Home Disposition Time: 23:00 Condition: GOOD Instructions: Polysubstance Abuse (ED)
[2017-12-18 23:12] VITALS: BP 132/81; PULSE 98; RESP 15; TEMP 98.1
[2017-12-19 19:41] VITALS: O2SAT 100
== END 2017-12-18 23:12 | disposition home or self-care (01) ==
LOC: H.ER 21:46
DX: F16.10 Hallucinogen abuse, uncomplicated (principal)

== ENCOUNTER 2018-01-07 19:44 | Emergency (ER) | payer BC ==
[2018-01-07 19:48] VITALS: BMI 26.6
[2018-01-07 19:51] VITALS: BP 137/88; PULSE 132; RESP 21; TEMP 97; O2SAT 96
--- NOTE | 2018-01-07 20:13 | ED PDOC ---
HPI: Psych/Substance Abuse Time Seen by Provider: 01/07/18 19:55 Chief Complaint (Nursing): Substance Abuse Chief Complaint (Provider): Substance Abuse ED Caveat: Intoxicated History Per: Patient History/Exam Limitations: intoxication Onset/Duration Of Symptoms: Days (x1) Current Symptoms Are (Timing): Still Present Modifying Factor(s): Other (PCP) Additional History Per: EMS Additional Complaint(s): Patient is a 27 year old male who was brought to the emergency department via EMS for substance abuse. Patient has a history of PCP abuse and multiple ER visits for the same. As per EMS, patient was found crawling around on the street. Patient offers no physical complaints at this time. PMD: Provider JESSY Past Medical History Reviewed: Historical Data, Nursing Documentation, Vital Signs Vital Signs: Last Vital Signs Temp 97 F L 01/07/18 19:48 Pulse 132 H 01/07/18 19:48 Resp 21 01/07/18 19:48 BP 137/88 01/07/18 19:48 Pulse Ox 96 01/07/18 19:48 - Medical History Other PMH: Substance abuse - Family History Family History: States: Unknown Family Hx - Social History Drugs: Other (PCP) - Immunization History Hx Tetanus Toxoid Vaccination: No Hx Influenza Vaccination: Yes (2015) Hx Pneumococcal Vaccination: No - Home Medications Home Medications: Ambulatory Orders Medication Instructions Recorded No Known Home Med 12/31/17 - Allergies Allergies/Adverse Reactions: Allergies Allergy/AdvReac Type Severity Reaction Status Date / Time No Known Allergies Allergy Verified 12/31/17 16:20 Review of Systems ROS Statement: Except As Marked, All Systems Reviewed And Found Negative Respiratory: Negative for: Shortness of Breath Gastrointestinal: Negative for: Vomiting Psych: Positive for: Other (substance abuse) Physical Exam - Reviewed Nursing Documentation Reviewed: Yes Vital Signs Reviewed: Yes - Physical Exam Appears: Positive for: Non-toxic, No Acute Distress Head Exam: Positive for: ATRAUMATIC, NORMAL INSPECTION, NORMOCEPHALIC Skin: Positive for: Normal Color, Warm, Dry Eye Exam: Positive for: EOMI, Normal appearance, PERRL Neck: Positive for: Normal, Painless ROM, Supple Cardiovascular/Chest: Positive for: Regular Rate, Rhythm. Negative for: Murmur Respiratory: Positive for: Normal Breath Sounds. Negative for: Accessory Muscle Use, Respiratory Distress Gastrointestinal/Abdominal: Positive for: Normal Exam, Soft. Negative for: Tenderness Back: Positive for: Normal Inspection. Negative for: Vertebral Tenderness Extremity: Positive for: Normal ROM. Negative for: Pedal Edema, Deformity Neurologic/Psych: Positive for: Alert, Oriented - Laboratory Results Result Diagrams: 01/07/18 20:28 01/07/18 20:28 - ECG O2 Sat by Pulse Oximetry: 96 (RA) Pulse Ox Interpretation: Normal Medical Decision Making Medical Decision Making: Initial Impression: 27 year old male with substance abuse Time: 19:38 Initial Plan: * Labs ordered * Placed on 1:1 observation Labs reviewed: Alcohol 89. Otherwise grossly normal. 21:00 Patient is ambulating with steady gait and clear speech. Stable for discharge home. Scribe Attestation: Documented by Kera Ferrell, acting as a scribe for Flynn Baltazar MD Provider Scribe Attestation: All medical record entries made by the Scribe were at my direction and personally dictated by me. I have reviewed the chart and agree that the record accurately reflects my personal performance of the history, physical exam, medical decision making, and the department course for this patient. I have also personally directed, reviewed, and agree with the discharge instructions and disposition. Disposition - Clinical Impression Clinical Impression: PCP intoxication - Patient ED Disposition Is Patient to be Admitted: No Counseled Patient/Family Regarding: Studies Performed, Diagnosis, Need For Followup - Disposition Disposition: Routine/Home Disposition Time: 21:00 Condition: STABLE Instructions: Drug Abuse and Drug Addiction (DC) Forms: [employer] (Macanese) - POA Present On Arrival: None
[2018-01-07 20:34] LABS: BASO # 0.1 K/uL (0.0-0.2); BASO % 1.2 % (0.0-2.0); EOS # 0.2 K/uL (0.0-0.7); HEMOGLOBIN 15.4 g/dL (12.0-18.0); LYMPH % 31.3 % (20.0-40.0); MEAN CORPUSCULAR HEMOGLOBIN 32.7 pg (27.0-31.0); MEAN PLATELET VOLUME 7.7 fl (7.2-11.7); MONO # 0.5 K/uL (0.0-0.8); MONO % 5.7 % (0.0-10.0); NEUT # 5.6 K/uL (1.8-7.0); NEUT % 59.8 % (50.0-75.0); RBC 4.7 Mil/uL (4.40-5.90); RED CELL DISTRIBUTION WIDTH 13.9 % (11.5-14.5); WHITE BLOOD COUNT 9.4 K/uL (4.8-10.8)
[2018-01-07 20:45] LABS: ALB/GLOB RATIO 1.5 (1.0-2.1); ALBUMIN 4.8 g/dL (3.5-5.0); ALT/SGPT 61 U/L (21-72); AST/SGOT 44 U/L (17-59); BLOOD UREA NITROGEN 18 mg/dl (9-20); CALCIUM 9.7 mg/dL (8.4-10.2); GFR AFRICAN-AMERICAN > 60; GFR NON-AFRICAN AMERICAN > 60
[2018-01-07 21:30] LABS: BARBITURATES, UR NEGATIVE (NEGATIVE); BENZODIAZEPINES, UR NEGATIVE (NEGATIVE); OPIATES, UR NEGATIVE (NEGATIVE); PHENCYCLIDINE, UR POSITIVE (NEGATIVE)
== END 2018-01-07 21:34 | disposition home or self-care (01) ==
LOC: H.ER 19:44
DX: F16.929 Hallucinogen use, unspecified with intoxication, unspecified (principal)
CPT/HCPCS: 80053; 82948; 85025; 99282; G0480

== ENCOUNTER 2018-01-14 18:19 | Emergency (ER) | payer BC ==
[2018-01-14 18:19] VITALS: BMI 26.6
[2018-01-14 18:22] VITALS: RESP 16; TEMP 98.1; O2SAT 100
[2018-01-14 19:06] LABS: BASO # 0.1 K/uL (0.0-0.2); BASO % 0.8 % (0.0-2.0); EOS # 0.2 K/uL (0.0-0.7); EOS % 2.1 % (0.0-4.0); HEMOGLOBIN 15.2 g/dL (12.0-18.0); LYMPH # 2.8 K/uL (1.0-4.3); LYMPH % 23.6 % (20.0-40.0); MEAN CELL VOLUME 96.2 fl (80.0-94.0); MEAN CORPUSCULAR HEMOGLOBIN 32.6 pg (27.0-31.0); MEAN CORPUSCULAR HGB CONC 33.9 g/dL (33.0-37.0); MONO # 0.7 K/uL (0.0-0.8); NEUT % 67.5 % (50.0-75.0); NRBC % 0.1 % (0.0-0.0); RBC 4.68 Mil/uL (4.40-5.90); RED CELL DISTRIBUTION WIDTH 13.8 % (11.5-14.5); WHITE BLOOD COUNT 11.8 K/uL (4.8-10.8)
[2018-01-14 19:14] VITALS: BP 147/82; PULSE 113
[2018-01-14 19:16] LABS: ALB/GLOB RATIO 1.5 (1.0-2.1); ALBUMIN 4.8 g/dL (3.5-5.0); ALT/SGPT 50 U/L (21-72); AST/SGOT 51 U/L (17-59); BLOOD UREA NITROGEN 25 mg/dl (9-20); CALCIUM 10.1 mg/dL (8.4-10.2); GFR AFRICAN-AMERICAN > 60; GFR NON-AFRICAN AMERICAN > 60
--- NOTE | 2018-01-14 19:16 | ED PDOC ---
HPI: Psych/Substance Abuse Time Seen by Provider: 01/14/18 18:23 Chief Complaint (Nursing): Substance Abuse Chief Complaint (Provider): drug abuse History Per: Other (HPD) Onset/Duration Of Symptoms: Unknown Additional Complaint(s): Pt known well to ER for polysubstance abuse (PCP and alcohol) Found by [place] [employer] standing in front of a building "stuck", not talking, no responding. Has improved since arrival and now talking with normal purposeful movement. Denies homicidal and suicidal ideation. Elusive about drug or alcohol use. Pt denies any symptoms and would like to be discharge Past Medical History Reviewed: Historical Data, Nursing Documentation, Vital Signs Vital Signs: Last Vital Signs Temp 98.1 F 01/14/18 18:20 Pulse 116 H 01/14/18 18:20 Resp 16 01/14/18 18:20 BP 178/88 H 01/14/18 18:20 Pulse Ox 100 01/14/18 18:20 - Medical History PMH: No Chronic Diseases - Surgical History Surgical History: No Surg Hx - Family History Family History: States: Unknown Family Hx - Social History Current smoker - smoking cessation education provided: Yes Alcohol: Social Drugs: Cannabis, Other (PCP) - Immunization History Hx Tetanus Toxoid Vaccination: No Hx Influenza Vaccination: Yes (2015) Hx Pneumococcal Vaccination: No - Home Medications Home Medications: Ambulatory Orders Medication Instructions Recorded No Known Home Med 12/31/17 - Allergies Allergies/Adverse Reactions: Allergies Allergy/AdvReac Type Severity Reaction Status Date / Time No Known Allergies Allergy Verified 12/31/17 16:20 Review of Systems ROS Statement: Except As Marked, All Systems Reviewed And Found Negative Physical Exam - Reviewed Nursing Documentation Reviewed: Yes Vital Signs Reviewed: Yes - Physical Exam Appears: Positive for: No Acute Distress Head Exam: Positive for: ATRAUMATIC, NORMOCEPHALIC Skin: Positive for: Warm, Dry Eye Exam: Positive for: EOMI, PERRL, Nystagmus (rotatory) ENT: Positive for: Other (tacky mucus membranes) Neck: Positive for: Painless ROM, Supple Cardiovascular/Chest: Positive for: Chest Non Tender, Tachycardia. Negative for : Murmur Respiratory: Positive for: Normal Breath Sounds. Negative for: Wheezing, Respiratory Distress Gastrointestinal/Abdominal: Positive for: Soft. Negative for: Tenderness Back: Positive for: Normal Inspection. Negative for: Decreased ROM Extremity: Positive for: Normal ROM. Negative for: Deformity Lymphatic: Negative for: Adenopathy Neurologic/Psych: Positive for: Alert, Oriented (x3), Gait (steady). Negative for: Motor/Sensory Deficits - Laboratory Results Result Diagrams: 01/14/18 19:01 - ECG O2 Sat by Pulse Oximetry: 100 Disposition - Clinical Impression Clinical Impression: PCP intoxication, Alcohol intoxication - Disposition Referrals: [facility] [Outside] Disposition: Routine/Home Disposition Time: 19:20 Condition: IMPROVED Instructions: Polysubstance Abuse (DC)
== END 2018-01-14 19:20 | disposition home or self-care (01) ==
LOC: H.ER 18:19
DX: F10.129 Alcohol abuse with intoxication, unspecified (principal); F16.10 Hallucinogen abuse, uncomplicated; F17.200 Nicotine dependence, unspecified, uncomplicated
CPT/HCPCS: 80053; 85025; 99284; G0480

== ENCOUNTER 2018-02-13 01:01 | Emergency (ER) | payer BC ==
[2018-02-13 01:01] VITALS: BMI 31.1
[2018-02-13 01:13] VITALS: BP 140/85; PULSE 88; RESP 18; TEMP 97.8; O2SAT 98
--- NOTE | 2018-02-13 02:49 | ED PDOC ---
HPI: Psych/Substance Abuse Time Seen by Provider: 02/13/18 01:17 Chief Complaint (Nursing): Alcohol Ingestion Chief Complaint (Provider): Alcohol Ingestion History Per: Patient, EMS History/Exam Limitations: intoxication Onset/Duration Of Symptoms: Mins (prior to arrival) Current Symptoms Are (Timing): Still Present Modifying Factor(s): Alcohol Additional Complaint(s): Rustam Ponce is a 28 year old male, well known to the ER for PCP abuse, with an unreliable history, who is presenting to the ER for evaluation of intoxication, s/p alteration with neighbor. He denies any medical complaints. History and review of systems are limited sure to patient's state of intoxication. PMD: none provided Past Medical History Reviewed: Historical Data, Nursing Documentation, Vital Signs, Unable To Obtain (unreliable) Vital Signs: Last Vital Signs Temp 97.8 F 02/13/18 01:05 Pulse 88 02/13/18 01:05 Resp 18 02/13/18 01:05 BP 140/85 02/13/18 01:05 Pulse Ox 98 02/13/18 01:05 - Medical History PMH: No Chronic Diseases - Surgical History Surgical History: No Surg Hx - Family History Family History: States: Unknown Family Hx - Immunization History Hx Tetanus Toxoid Vaccination: No Hx Influenza Vaccination: Yes (2016) Hx Pneumococcal Vaccination: No - Home Medications Home Medications: Ambulatory Orders Medication Instructions Recorded No Known Home Med 12/31/17 - Allergies Allergies/Adverse Reactions: Allergies Allergy/AdvReac Type Severity Reaction Status Date / Time No Known Allergies Allergy Verified 02/13/18 01:05 Review of Systems ROS Statement: Except As Marked, All Systems Reviewed And Found Negative Review Of Systems: ROS cannot be obtained secondary to pt's inabilty to answer questions. (patient denies everything, though unreliable due to patient's state of intoxication) Physical Exam - Reviewed Nursing Documentation Reviewed: Yes Vital Signs Reviewed: Yes - Physical Exam Appears: Positive for: No Acute Distress Eye Exam: Positive for: Nystagmus (mild) ENT: Positive for: Other (dry mucous membranes) Neurologic/Psych: Positive for: Oriented (x2), Other (unsteady gait, slurred mumbling speech) - ECG O2 Sat by Pulse Oximetry: 98 (RA) Pulse Ox Interpretation: Normal Medical Decision Making Medical Decision Making: Time: 1:30 Patient is well known to the ER for PCP abuse, but today offers no medical complaints. Scribe Attestation: Documented by Anum Padron acting as a scribe for Lima Edmond MD. Scribe Attestation: All medical record entries made by the Scribe were at my direction and personally dictated by me. I have reviewed the chart and agree that the record accurately reflects my personal performance of the history, physical exam, medical decision making, and the department course for this patient. I have also personally directed, reviewed, and agree with the discharge instructions and disposition. Disposition - Clinical Impression Clinical Impression: PCP intoxication, Alcohol abuse with alcohol-induced disorder, PCP ( phencyclidine) abuse - Disposition Condition: IMPROVED Instructions: Drug Abuse and Drug Addiction (DC), Alcohol Abuse and Alcoholism (DC)
[2018-02-13 05:55] LABS: BARBITURATES, UR NEGATIVE (NEGATIVE); BENZODIAZEPINES, UR NEGATIVE (NEGATIVE); OPIATES, UR NEGATIVE (NEGATIVE); PHENCYCLIDINE, UR POSITIVE (NEGATIVE)
== END 2018-02-13 06:40 | disposition home or self-care (01) ==
LOC: H.ER 01:01
DX: F10.10 Alcohol abuse, uncomplicated (principal); F16.10 Hallucinogen abuse, uncomplicated
CPT/HCPCS: 99284; G0480

== ENCOUNTER 2018-03-19 20:52 | Emergency (ER) | payer BC ==
[2018-03-19 20:53] VITALS: BMI 31.1
[2018-03-19 20:59] VITALS: PULSE 118; RESP 18; TEMP 99.2; O2SAT 98
--- NOTE | 2018-03-19 21:49 | ED PDOC ---
HPI: Psych/Substance Abuse Time Seen by Provider: 03/19/18 21:10 Chief Complaint (Nursing): Substance Abuse Chief Complaint (Provider): Substance Abuse History Per: Patient History/Exam Limitations: no limitations Onset/Duration Of Symptoms: Hrs Current Symptoms Are (Timing): Still Present Suicide/Self Injury Attempted (Context): Other Modifying Factor(s): Other (PCP) Associated Symptoms: denies: Depression, Suicidal Thoughts, Suicidal Plan Involuntary Hold By: None Additional Complaint(s): 28 year old male is brought into the emergency department by ambulance for possible substance abuse. Patient admits to using PCP and states that he uses it regularly. Patient currently offers no medical complaints. Patient has no report of trauma nor psychiatric concerns. He is well known to provider for multiple ED visits for PCP use. Past Medical History Reviewed: Historical Data, Nursing Documentation, Vital Signs Vital Signs: Last Vital Signs Temp 99.2 F 03/19/18 20:56 Pulse 118 H 03/19/18 20:56 Resp 18 03/19/18 20:56 BP Pulse Ox 98 03/19/18 20:56 - Medical History PMH: No Chronic Diseases - Surgical History Surgical History: No Surg Hx - Family History Family History: States: Unknown Family Hx - Social History Current smoker - smoking cessation education provided: Yes (Heavy Smoker > 10 Cigarettes Daily) Alcohol: Other Drugs: Other (PCP) - Immunization History Hx Tetanus Toxoid Vaccination: No Hx Influenza Vaccination: Yes (2015) Hx Pneumococcal Vaccination: No - Home Medications Home Medications: Ambulatory Orders Medication Instructions Recorded No Known Home Med 12/31/17 - Allergies Allergies/Adverse Reactions: Allergies Allergy/AdvReac Type Severity Reaction Status Date / Time No Known Allergies Allergy Verified 03/19/18 20:55 Review of Systems ROS Statement: Except As Marked, All Systems Reviewed And Found Negative Constitutional: Positive for: Other (Substance Abuse) Cardiovascular: Negative for: Chest Pain, Palpitations Respiratory: Negative for: Shortness of Breath Gastrointestinal: Negative for: Nausea, Vomiting Physical Exam - Reviewed Nursing Documentation Reviewed: Yes Vital Signs Reviewed: Yes - Physical Exam Appears: Positive for: Non-toxic, No Acute Distress Head Exam: Positive for: ATRAUMATIC, NORMAL INSPECTION, NORMOCEPHALIC Skin: Positive for: Normal Color, Warm, Dry. Negative for: Rash Eye Exam: Positive for: Normal appearance, EOMI, PERRL. Negative for: Nystagmus ENT: Positive for: Normal ENT Inspection. Negative for: Nasal Congestion, Tonsillar Exudate, Tonsillar Swelling Neck: Positive for: Normal, Painless ROM, Supple Cardiovascular/Chest: Positive for: Regular Rate, Rhythm, Chest Non Tender. Negative for: Tachycardia Respiratory: Positive for: Normal Breath Sounds. Negative for: Rales, Rhonchi, Wheezing, Respiratory Distress Gastrointestinal/Abdominal: Positive for: Normal Exam, Bowel Sounds, Soft. Negative for: Tenderness, Mass, Guarding, Rebound Back: Positive for: Normal Inspection. Negative for: L CVA Tenderness, R CVA Tenderness Extremity: Positive for: Normal ROM. Negative for: Tenderness, Deformity, Swelling Neurologic/Psych: Positive for: Alert, Oriented, Gait - ECG O2 Sat by Pulse Oximetry: 98 (RA) Pulse Ox Interpretation: Normal Medical Decision Making Medical Decision Makin Initial Impression 28 y/o male presenting with recreational substance abuse Initial Plan: * Reevaluation No criteria for further observation or treatment in ED patient ambulatory alert and awake with steady gait and stable for discharge. Documented by Yesika Chow acting as a scribe for Edgar Muller MD. All medical record entries made by the Scribe were at my direction and personally dictated by me. I have reviewed the chart and agree that the record accurately reflects my personal performance of the history, physical exam, medical decision making, and the department course for this patient. I have also personally directed, reviewed, and agree with the discharge instructions and disposition. Disposition - Clinical Impression Clinical Impression: PCP (phencyclidine) abuse - Patient ED Disposition Is Patient to be Admitted: No Counseled Patient/Family Regarding: Studies Performed, Diagnosis - Disposition Referrals: FAMILY PROVIDER,NO [Primary Care Provider] - Disposition: Routine/Home Disposition Time: 21:15 Condition: STABLE Instructions: Drug Abuse and Drug Addiction (DC) - POA Present On Arrival: None
== END 2018-03-19 21:15 | disposition short-term general hospital (02) ==
LOC: H.ER 20:52
DX: F16.10 Hallucinogen abuse, uncomplicated (principal)

== ENCOUNTER 2018-06-03 22:55 | Emergency (ER) | payer BC ==
[2018-06-03 22:55] VITALS: BMI 25.0
--- NOTE | 2018-06-04 00:04 | ED PDOC ---
HPI: Psych/Substance Abuse Time Seen by Provider: 06/03/18 23:12 Chief Complaint (Nursing): Substance Abuse Chief Complaint (Provider): Substance Abuse ED Caveat: Intoxicated History Per: Patient, EMS History/Exam Limitations: intoxication Onset/Duration Of Symptoms: Hrs ([employer]) Current Symptoms Are (Timing): Still Present Suicide/Self Injury Attempted (Context): None Modifying Factor(s): Other (PCP) Additional Complaint(s): 28 year old male with no significant past medical history who is well known to this ER for PCP abuse, presents to the ED with drug intoxication onset [employer]. EMS reports patient was found altered with a right elbow injury. Patient is unable to recall how he got there or how he sustained the injury. A full HPI could not be obtained because patient is intoxicated. PMD: none provided Past Medical History Reviewed: Historical Data, Nursing Documentation, Vital Signs Vital Signs: Last Vital Signs Temp 99 F 06/03/18 23:01 Pulse 117 H 06/03/18 23:01 Resp 16 06/03/18 23:01 BP 130/76 06/03/18 23:01 Pulse Ox 95 06/03/18 23:01 - Medical History PMH: No Chronic Diseases - Surgical History Surgical History: No Surg Hx - Family History Family History: States: No Known Family Hx - Social History Alcohol: Other (yes) Drugs: Other (PCP) - Immunization History Hx Tetanus Toxoid Vaccination: No Hx Influenza Vaccination: Yes (2015) Hx Pneumococcal Vaccination: No - Home Medications Home Medications: Ambulatory Orders Medication Instructions Recorded No Known Home Med 12/31/17 - Allergies Allergies/Adverse Reactions: Allergies Allergy/AdvReac Type Severity Reaction Status Date / Time No Known Allergies Allergy Verified 06/03/18 23:01 Review of Systems Review Of Systems: ROS cannot be obtained secondary to pt's inabilty to answer questions. Musculoskeletal: Positive for: Other (right elbow injury) Neurological: Positive for: Altered Mental Status Physical Exam - Reviewed Nursing Documentation Reviewed: Yes Vital Signs Reviewed: Yes - Physical Exam Appears: Positive for: No Acute Distress (intoxicated) Head Exam: Positive for: ATRAUMATIC, NORMOCEPHALIC Skin: Positive for: Normal Color, Warm, Dry Eye Exam: Positive for: EOMI, PERRL, Other (Rotatory nystagmus) ENT: Positive for: Pharynx Is (clear), Other (pasty mucus membranes) Neck: Positive for: Painless ROM, Supple Cardiovascular/Chest: Positive for: Regular Rate, Rhythm. Negative for: Murmur Respiratory: Positive for: Normal Breath Sounds. Negative for: Wheezing, Respiratory Distress Gastrointestinal/Abdominal: Positive for: Soft. Negative for: Distended Back: Positive for: Normal Inspection. Negative for: Decreased ROM Extremity: Positive for: Other (Right elbow abrasion superficial, minimal edema , full ROM of elbow, no palpable crepitus or step off ). Negative for: Deformity Lymphatic: Negative for: Adenopathy Neurologic/Psych: Positive for: Alert, firearms sales associate II-XII (intact), Gait (unsteady ), Other (slurred speech, poor judgement, poor thought process). Negative for: Oriented, Motor/Sensory Deficits Comments: patient was uncooperative with exam - ECG O2 Sat by Pulse Oximetry: 95 (RA) Pulse Ox Interpretation: Normal Medical Decision Making Medical Decision Making: Time: 23:12 Initial Impression: PCP intoxication Initial Plan: --EKG --1:1 --Patient attempted to leave and almost fell down multiple times, unable to redirect. Required restraints for safety and medication for PCP psychosis. --Ativan 2 mg IM --Haldol 5 mg IM 12am Endorsed to Dr Richards pending sobriety Scribe Attestation: Documented by Silvina Yadav, acting as a scribe for Lima Edmond MD Provider Scribe Attestation: All medical record entries made by the Scribe were at my direction and personally dictated by me. I have reviewed the chart and agree that the record accurately reflects my personal performance of the history, physical exam, medical decision making, and the department course for this patient. I have also personally directed, reviewed, and agree with the discharge instructions and disposition. Disposition - Clinical Impression Clinical Impression: Drug abuse - Disposition Disposition: Transfer of Care Disposition Time: 00:00 Condition: GUARDED Patient Signed Over To: Glenroy Richards
--- NOTE | 2018-06-04 04:08 | ED PDOC ---
- ECG O2 Sat by Pulse Oximetry: 95 (RA) Pulse Ox Interpretation: Normal Medical Decision Making Medical Decision Making: Time: 00:00 --Patient endorsed to this provider by Dr. Edmond. Time: 4:07 --Patient is awake, alert, and oriented. He has a steady gait. Scribe Attestation: Documented by Silvina Yadav, acting as a scribe for Glenroy Richards MD Provider Scribe Attestation: All medical record entries made by the Scribe were at my direction and personally dictated by me. I have reviewed the chart and agree that the record accurately reflects my personal performance of the history, physical exam, medical decision making, and the department course for this patient. I have also personally directed, reviewed, and agree with the discharge instructions and disposition. Disposition - Clinical Impression Clinical Impression: Drug abuse - POA Present On Arrival: None - Disposition Referrals: [facility] [Outside] Disposition: Routine/Home Disposition Time: 04:00 Condition: IMPROVED Instructions: Drug Abuse and Drug Addiction (DC) Forms: [facility] (Malay)
[2018-06-04 06:14] VITALS: BP 112/58; PULSE 88; RESP 18; TEMP 98.6
--- NOTE | 2018-06-04 13:43 | CARD ---
APPROVED REPORT Date of service: 06/04/2018 EKG Measurement Heart [id number] <Conclusion> Sinus tachycardia Possible Left atrial enlargement Incomplete right bundle branch block Borderline ECG
[2018-06-04 15:52] VITALS: O2SAT 95
== END 2018-06-04 06:05 | disposition home or self-care (01) ==
LOC: H.ER 22:55
DX: F19.10 Other psychoactive substance abuse, uncomplicated (principal)
CPT/HCPCS: 82948; 93005; 96372; 99285; J1630; J2060